=== PATIENT | male | born 1955 | race Caucasian/White ===

== ENCOUNTER 2020-02-15 16:15 | Emergency (ER) | payer OTHER ==
[~2020-02-15] VITALS: Ht 172.7 cm; Wt 131.5 kg
--- NOTE | 2020-02-15 16:22 | PHYS DOC ---
Past History Past Medical History: Diabetes (JEAN CARLOS CARSON MD) Smoking: Non-smoker (JEAN CARLOS CARSON MD) General Adult EDM: Chief Complaint: WEAKNESS/GENERALIZED HPI: HPI: Patient is a 64-year-old male presents with generalized weakness. Patient was diagnosed with COVID-19 Tuesday and began having symptoms Tuesday. Patient has persistently had a fever cough but denies significant as of breath. Patient had nausea with some vomiting diarrhea. Patient has nasal congestion. Patient feels generally weak. (JEAN CARLOS CARSON MD) Review of Systems: Review of Systems: Constitutional: Complains of fever Eyes: Denies change in visual acuity HENT: Complains of congestion Respiratory: Complains of cough but no shortness of breath Cardiovascular: Denies chest pain or edema GI: Denies abdominal pain, but has nausea vomiting diarrhea : Denies dysuria Musculoskeletal: Complains of diffuse myalgias Integument: Denies rash Neurologic: Denies headache, focal weakness or sensory changes Endocrine: Denies polyuria or polydipsia Lymphatic: Denies swollen glands Psychiatric: Denies depression or anxiety (JEAN CARLOS CARSON MD) Heart Score: Risk Factors: Risk Factors: DM, Current or recent (<one month) smoker, HTN, HLP, family history of CAD, obesity. Risk Scores: Score 0 - 3: 2.5% MACE over next 6 weeks - Discharge Home Score 4 - 6: 20.3% MACE over next 6 weeks - Admit for Clinical Observation Score 7 - 10: 72.7% MACE over next 6 weeks - Early Invasive Strategies (JEAN CARLOS CARSON MD) Allergies: Allergies: Allergies Coded Allergies Type Severity Reaction Last Updated Verified No Known Drug Allergies 02/15/20 No (JEAN CARLOS CARSON MD) Physical Exam: PE: Constitutional: Well developed, well nourished, no acute distress, non-toxic appearance. [] HENT: Normocephalic, atraumatic, bilateral external ears normal, oropharynx moist, no oral exudates, nose normal. [] Eyes: PERRLA, EOMI, conjunctiva normal, no discharge. [] Neck: Normal range of motion, no tenderness, supple, no stridor. [] Cardiovascular:Heart rate regular rhythm, no murmur [] Lungs & Thorax: Bilateral breath sounds clear to auscultation [] Abdomen: Bowel sounds normal, soft, no tenderness, no masses, no pulsatile masses. [] Skin: Warm, dry, no erythema, no rash. [] Back: No tenderness, no CVA tenderness. [] Extremities: No tenderness, no cyanosis, no clubbing, ROM intact, no edema. [] Neurologic: Alert and oriented X 3, normal motor function, normal sensory function, no focal deficits noted. [] Psychologic: Affect normal, judgement normal, mood normal. [] (JEAN CARLOS CARSON MD) Current Patient Data: Labs: Laboratory Tests Test 02/15/20 16:38 White Blood Count 7.6 x10^3/uL Red Blood Count 5.55 x10^6/uL Hemoglobin 14.3 g/dL Hematocrit 44.8 % Mean Corpuscular Volume 81 fL Mean Corpuscular Hemoglobin 26 pg Mean Corpuscular Hemoglobin Concent 32 g/dL Red Cell Distribution Width 14.8 % Platelet Count 224 x10^3/uL Neutrophils (%) (Auto) 75 % Lymphocytes (%) (Auto) 17 % Monocytes (%) (Auto) 7 % Eosinophils (%) (Auto) 0 % Basophils (%) (Auto) 1 % Neutrophils # (Auto) 5.7 x10^3uL Lymphocytes # (Auto) 1.3 x10^3/uL Monocytes # (Auto) 0.6 x10^3/uL Eosinophils # (Auto) 0.0 x10^3/uL Basophils # (Auto) 0.1 x10^3/uL Prothrombin Time 9.9 SEC Prothromb Time International Ratio 1.0 Activated Partial Thromboplast Time 25 SEC D-Dimer (Renate) 0.79 mg/L Sodium Level 133 mmol/L Potassium Level 3.8 mmol/L Chloride Level 99 mmol/L Carbon Dioxide Level 25 mmol/L Anion Gap 9 Blood Urea Nitrogen 16 mg/dL Creatinine 0.9 mg/dL Estimated GFR (Cockcroft-Gault) 85.2 BUN/Creatinine Ratio 18 Glucose Level 153 mg/dL Lactic Acid Level 1.3 mmol/L Calcium Level 8.9 mg/dL Total Bilirubin 0.4 mg/dL Aspartate Amino Transf (AST/SGOT) 33 U/L Alanine Aminotransferase (ALT/SGPT) 44 U/L Alkaline Phosphatase 38 U/L Creatine Kinase 167 U/L Troponin I Quantitative 0.048 ng/mL Total Protein 7.3 g/dL Albumin 3.0 g/dL Albumin/Globulin Ratio 0.7 Lipase 101 U/L Current Medications Medications (Trade) Dose Ordered Sig/Johan Route PRN Reason Start Time Stop Time Status Last Admin Dose Admin Sodium Chloride (Normal Saline Flush) 10 ml QSHIFT PRN IV AFTER MEDS AND BLOOD DRAWS 02/15/20 16:30 Sodium Chloride 1,000 ml @ 1,000 mls/hr 1X ONCE IV 02/15/20 16:30 02/15/20 17:29 DC 02/15/20 16:30 Ondansetron HCl (Zofran) 4 mg 1X ONCE IVP 02/15/20 16:30 02/15/20 16:31 DC Acetaminophen (Tylenol) 1,000 mg 1X ONCE PO 02/15/20 16:30 02/15/20 16:31 DC 02/15/20 16:30 Acetaminophen (Tylenol) 325 mg STK-MED ONCE PO 02/15/20 16:27 02/15/20 16:27 DC Acetaminophen (Tylenol) 500 mg STK-MED ONCE PO 02/15/20 16:29 02/15/20 16:29 DC Vital Signs: Vital Signs Date Time Temp Pulse Resp B/P (MAP) Pulse Ox O2 Delivery O2 Flow Rate FiO2 02/15/20 16:19 100.7 62 16 136/72 (93) 93 Room Air (JEAN CARLOS CARSON MD) Labs: Laboratory Tests Test 02/15/20 16:38 02/15/20 17:19 White Blood Count 7.6 x10^3/uL Red Blood Count 5.55 x10^6/uL Hemoglobin 14.3 g/dL Hematocrit 44.8 % Mean Corpuscular Volume 81 fL Mean Corpuscular Hemoglobin 26 pg Mean Corpuscular Hemoglobin Concent 32 g/dL Red Cell Distribution Width 14.8 % Platelet Count 224 x10^3/uL Neutrophils (%) (Auto) 75 % Lymphocytes (%) (Auto) 17 % Monocytes (%) (Auto) 7 % Eosinophils (%) (Auto) 0 % Basophils (%) (Auto) 1 % Neutrophils # (Auto) 5.7 x10^3uL Lymphocytes # (Auto) 1.3 x10^3/uL Monocytes # (Auto) 0.6 x10^3/uL Eosinophils # (Auto) 0.0 x10^3/uL Basophils # (Auto) 0.1 x10^3/uL Prothrombin Time 9.9 SEC Prothromb Time International Ratio 1.0 Activated Partial Thromboplast Time 25 SEC D-Dimer (Renate) 0.79 mg/L Sodium Level 133 mmol/L Potassium Level 3.8 mmol/L Chloride Level 99 mmol/L Carbon Dioxide Level 25 mmol/L Anion Gap 9 Blood Urea Nitrogen 16 mg/dL Creatinine 0.9 mg/dL Estimated GFR (Cockcroft-Gault) 85.2 BUN/Creatinine Ratio 18 Glucose Level 153 mg/dL Lactic Acid Level 1.3 mmol/L Calcium Level 8.9 mg/dL Total Bilirubin 0.4 mg/dL Aspartate Amino Transf (AST/SGOT) 33 U/L Alanine Aminotransferase (ALT/SGPT) 44 U/L Alkaline Phosphatase 38 U/L Creatine Kinase 167 U/L Troponin I Quantitative 0.048 ng/mL Total Protein 7.3 g/dL Albumin 3.0 g/dL Albumin/Globulin Ratio 0.7 Lipase 101 U/L Urine Collection Type Unknown Urine Color Yellow Urine Clarity Clear Urine pH 5.5 Urine Specific [place] 1.010 Urine Protein Trace Urine Glucose (UA) >=1000 mg/dL Urine Ketones (Stick) Neg mg/dL Urine Blood Trace Urine Nitrite Neg Urine Bilirubin Neg Urine Urobilinogen Dipstick 0.2 mg/dL Urine Leukocyte Esterase Neg Urine RBC 0 /HPF Urine WBC 0 /HPF Urine Squamous Epithelial Cells None /LPF Urine Bacteria 0 /HPF Current Medications Medications (Trade) Dose Ordered Sig/Johan Route PRN Reason Start Time Stop Time Status Last Admin Dose Admin Sodium Chloride (Normal Saline Flush) 10 ml QSHIFT PRN IV AFTER MEDS AND BLOOD DRAWS 02/15/20 16:30 Sodium Chloride 1,000 ml @ 1,000 mls/hr 1X ONCE IV 02/15/20 16:30 02/15/20 17:29 DC 02/15/20 16:30 Ondansetron HCl (Zofran) 4 mg 1X ONCE IVP 02/15/20 16:30 02/15/20 16:31 DC Acetaminophen (Tylenol) 1,000 mg 1X ONCE PO 02/15/20 16:30 02/15/20 16:31 DC 02/15/20 16:30 Acetaminophen (Tylenol) 325 mg STK-MED ONCE PO 02/15/20 16:27 02/15/20 16:27 DC Acetaminophen (Tylenol) 500 mg STK-MED ONCE PO 02/15/20 16:29 02/15/20 16:29 DC (VIOLETTE VIGIL DO) EKG: EKG: [] EKG interpreted by me normal sinus rhythm rate of 68 normal axis incomplete right bundle branch block inverted T waves V1 through V3 (JEAN CARLOS CARSON MD) Radiology/Procedures: Radiology/Procedures: [][address] [address] IMAGING REPORT Signed PATIENT: TASHI MCDOWELL ACCOUNT: [id number] : 1955 LOCATION: ER AGE: 64 SEX: M EXAM STATUS: PRE ER ORD. PHYSICIAN: JEAN CARLOS CARSON MD REASON: covid, soa PROCEDURE: PORTABLE CHEST 1V PORTABLE CHEST 1V Clinical indications: covid, shortness of air COMPARISON: None available. Findings: Decreased inspiration is seen which may be related to patient's larger body habitus. No acute lung infiltrate or pleural effusion or pulmonary edema or lung mass or pneumothorax is seen. Sternotomy is evident. The heart size, pulmonary vasculature, mediastinum and both azucena are otherwise unremarkable. Impression: No acute radiographic abnormality is seen. Electronically signed by: Grover Koo MD (02/15/2020 4:51 PM) [id number] DICTATED AND SIGNED BY: GROVER KOO MD DATE: 02/15/201650 CC: JEAN CARLOS CARSON MD; PCP,NO ~ (JEAN CARLOS CARSON MD) Radiology/Procedures: [address] [address] IMAGING REPORT Signed PATIENT: TASHI MCDOWELL ACCOUNT: [id number] : 1955 LOCATION: ER AGE: 64 SEX: M EXAM STATUS: PRE ER ORD. PHYSICIAN: JEAN CARLOS CARSON MD REASON: covid, soa PROCEDURE: PORTABLE CHEST 1V PORTABLE CHEST 1V Clinical indications: covid, shortness of air COMPARISON: None available. Findings: Decreased inspiration is seen which may be related to patient's larger body habitus. No acute lung infiltrate or pleural effusion or pulmonary edema or lung mass or pneumothorax is seen. Sternotomy is evident. The heart size, pulmonary vasculature, mediastinum and both azucena are otherwise unremarkable. Impression: No acute radiographic abnormality is seen. Electronically signed by: Grover Koo MD (02/15/2020 4:51 PM) [id number] DICTATED AND SIGNED BY: GROVER KOO MD DATE: 02/15/201650 CC: JEAN CARLOS CARSON MD; PCP,NO ~ Impressions: [address] [address] IMAGING REPORT Signed PATIENT: TASHI MCDOWELL ACCOUNT: [id number] : 1955 LOCATION: ER AGE: 64 SEX: M EXAM STATUS: REG ER ORD. PHYSICIAN: JEAN CARLOS CARSON MD REASON: OMNI 350,100ML IV.COVID, COUGH, ELEVATED D DIMER, SOA PROCEDURE: CT ANGIOGRAPHY CHEST PQRS Compliance Statement: One or more of the following individualized dose reduction techniques were utilized for this examination: 1. Automated exposure control 2. Adjustment of the mA and/or kV according to patient size 3. Use of iterative reconstruction technique CT CHEST WITH CONTRAST, PULMONARY ANGIOGRAM History: Reason: COVID, COUGH, ELEVATED D DIMER, SOA / Comparison: None. Technique: Helical CT of the chest was performed after the administration of 100 cc of Omnipaque 350 intravenous contrast according to PE protocol. Axial and coronal reconstructions were obtained. 3-D MIP images were constructed to better evaluate the pulmonary arteries. Findings: Pulmonary arteries are adequately opacified. There is no evidence of pulmonary embolism. Coronary artery disease and changes of CABG. There is moderate bilateral gynecomastia. Thyroid is symmetric. Subcentimeter mediastinal lymph nodes. There are mildly enlarged bilateral hilar lymph nodes that may be reactive. The great vessels are normal caliber. Cardiac size is normal, no pericardial effusion. There is no pleural effusion. The central airways are patent. There are scattered groundglass opacities throughout the lungs with a peripheral and basilar predominance. Linear opacities in the right lower lobe may be a component of atelectasis. There are mild consolidations in the posterior basilar left lower lobe. Incompletely imaged 4.5 cm left renal cyst does not require follow-up. There is a 1.3 cm probable left adrenal adenoma, no follow-up. Thoracic spine alignment is maintained. There are degenerative changes. IMPRESSION: 1. There is no CT evidence of pulmonary embolus. 2. There are moderate peripheral and basilar predominant groundglass opacities. Considerations include atypical viral pneumonia or nonspecific pneumonitis. 3. Mildly enlarged bilateral hilar lymph nodes may be reactive. Electronically signed by: Will Ramos MD (02/15/2020 7:37 PM) [facility] DICTATED AND SIGNED BY: WILL RAMOS MD DATE: 02/15/201936 CC: JEAN CARLOS CARSON MD; PCP,NO; VIOLETTE VIGIL DO ~ (VIOLETTE VIGIL DO) Course & Med Decision Making: Course & Med Decision Making Pertinent Labs and Imaging studies reviewed. (See chart for details) [] 64-year-old male with COVID presents with generalized weakness and cough. His oxygen level is between 91 and 93 % is elevated d-dimer he will need a CT angiogram to rule out pulmonary embolism. Care will be signed over to Dr. Vigil with CT angiogram pending and disposition pending. (JEAN CARLOS CARSON MD) Course & Med Decision Making [address] angios chest to be completed. Patient will require different IV access. Awaiting for that to be completed now 1950 stable, CT scan did not show evidence of pulmonary embolus. However there was groundglass appearance present consistent with a probable developing viral/COVID pneumonia. We have no available isolation beds at this facility [address] Dr. Michelle is the excepting physician for medical monitored bed at [facility]. Patient has a known positive COVID infection. (VIOLETTE VIGIL DO) Dragon Disclaimer: Dragon Disclaimer: This electronic medical record was generated, in whole or in part, using a voice recognition dictation system. (JEAN CARLOS CARSON MD) Departure Departure: Impression: Primary Impression: COVID-19 Additional Impressions: Pulmonary infiltrates Hyperglycemia Hypoxia Disposition: 05 TRANSFER OTHER ([facility] under Dr. Michelle) Admitting Physician: Nicolette Michelle (VIOLETTE VIGIL DO) Condition: STABLE Referrals: PCP,SYLWIA (PCP) Justification of Admission: Justification of Admission: Justification of Admission Dx: N/A (JEAN CARLOS CARSON MD) Justification of Admission Dx: Yes Comminuty Aquired Pneumonia: Hypoxemia (VIOLETTE VIGIL DO) COVID-19 Assessment COVID-19 Patient Risks: Age 65 or older: No Sign of co-morbidity: Yes Exp to person + for COVID: Yes Exp to PUI: Yes Travel from affected area: No Lower respiratory symptoms: Yes Fever: Yes Other: No Comments: known positive COVID 1 week ago, pt is in isolation room (VIOLETTE VIGIL DO) PPE Use: Full PPE with N95 mask or PAPR: Yes (VIOLETTE VIGIL DO) JEAN CARLOS CARSON MD Feb 15, 2020 16:22 VIOLETTE VIGIL DO Feb 15, 2020 18:04
[2020-02-15] MEDS ORDERED: ACETAMINOPHEN 325 MG TABLET PO ONE (16:27)
[2020-02-15] MEDS ORDERED: ACETAMINOPHEN 500 MG TABLET PO ONE ×2 (16:29→16:30)
[2020-02-15] MEDS ORDERED: IV NORMAL SALINE 1,000ML 1,000 ML IV ONE (16:30)
[2020-02-15] MEDS ORDERED: ONDANSETRON PF 4 MG/2 ML VIAL. IVP ONE (16:30)
[2020-02-15] MEDS ORDERED: 0.9 % SODIUM CHLORIDE 10 ML DISP.SYRIN. IV PRN (16:30)
--- NOTE | 2020-02-15 16:48 | EKG ---
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
--- NOTE | 2020-02-15 16:54 | RAD ---
PORTABLE CHEST 1V Clinical indications: covid, shortness of air COMPARISON: None available. Findings: Decreased inspiration is seen which may be related to patient's larger body habitus. No acute lung infiltrate or pleural effusion or pulmonary edema or lung mass or pneumothorax is seen. Sternotomy is evident. The heart size, pulmonary vasculature, mediastinum and both azucena are otherwise unremarkable. Impression: No acute radiographic abnormality is seen. Electronically signed by: Reinier Koo MD (02/15/2020 4:51 PM) [id number]
[2020-02-15 17:03] LABS: BASO # 0.1 x10^3/uL (0.0-0.2); BASO % 1 % (0-3); EOS % 0 % (0-3); HEMATOCRIT 44.8 % (39.0-53.0); HEMOGLOBIN 14.3 g/dL (13.0-17.5); LYMPH # 1.3 x10^3/uL (1.0-4.8); LYMPH % 17 % (24-48); MEAN CORPUSCULAR HEMOGLOBIN 26 pg (25-35); MEAN CORPUSCULAR HGB CONC 32 g/dL (31-37); MEAN CORPUSCULAR VOLUME 81 fL (79-100); MONO # 0.6 x10^3/uL (0.0-1.1); MONO % 7 % (0-9); NEUT # 5.7 x10^3uL (1.8-7.7); NEUT % 75 % (31-73); PLATELET COUNT 224 x10^3/uL (140-400); RED BLOOD COUNT 5.55 x10^6/uL (4.30-5.70); RED CELL DISTRIBUTION WIDTH 14.8 % (11.5-14.5); WHITE BLOOD COUNT 7.6 x10^3/uL (4.0-11.0)
[2020-02-15 17:11] LABS: CALCIUM 8.9 mg/dL (8.5-10.1); CREATININE 0.9 mg/dL (0.7-1.3); GFR 85.2; POTASSIUM 3.8 mmol/L (3.5-5.1)
[2020-02-15 17:17] LABS: ALBUMIN/GLOBULIN RATIO 0.7 (1.0-1.7); TOTAL BILIRUBIN 0.4 mg/dL (0.2-1.0); TOTAL PROTEIN 7.3 g/dL (6.4-8.2)
[2020-02-15 17:53] LABS: CLARITY,URINE CLEAR; COLOR,URINE YELLOW; GLUCOSE,URINE >=1000 mg/dL (NEG)
[2020-02-15 17:54] LABS: BACTERIA,URINE 0 /HPF (0-FEW); BILIRUBIN,URINE NEG (NEG); NITRITE,URINE NEG (NEG); RBC,URINE 0 /HPF (0-2); UROBILINOGEN,URINE 0.2 mg/dL (0.2 mg/dL); WBC,URINE 0 /HPF (0-4)
[2020-02-15] MEDS ORDERED: IOHEXOL 350 MG/ML 100 ML VIAL. IV ONE (18:15)
--- NOTE | 2020-02-15 19:40 | RAD ---
PQRS Compliance Statement: One or more of the following individualized dose reduction techniques were utilized for this examination: 1. Automated exposure control 2. Adjustment of the mA and/or kV according to patient size 3. Use of iterative reconstruction technique CT CHEST WITH CONTRAST, PULMONARY ANGIOGRAM History: Reason: COVID, COUGH, ELEVATED D DIMER, SOA / Comparison: None. Technique: Helical CT of the chest was performed after the administration of 100 cc of Omnipaque 350 intravenous contrast according to PE protocol. Axial and coronal reconstructions were obtained. 3-D MIP images were constructed to better evaluate the pulmonary arteries. Findings: Pulmonary arteries are adequately opacified. There is no evidence of pulmonary embolism. Coronary artery disease and changes of CABG. There is moderate bilateral gynecomastia. Thyroid is symmetric. Subcentimeter mediastinal lymph nodes. There are mildly enlarged bilateral hilar lymph nodes that may be reactive. The great vessels are normal caliber. Cardiac size is normal, no pericardial effusion. There is no pleural effusion. The central airways are patent. There are scattered groundglass opacities throughout the lungs with a peripheral and basilar predominance. Linear opacities in the right lower lobe may be a component of atelectasis. There are mild consolidations in the posterior basilar left lower lobe. Incompletely imaged 4.5 cm left renal cyst does not require follow-up. There is a 1.3 cm probable left adrenal adenoma, no follow-up. Thoracic spine alignment is maintained. There are degenerative changes. IMPRESSION: 1. There is no CT evidence of pulmonary embolus. 2. There are moderate peripheral and basilar predominant groundglass opacities. Considerations include atypical viral pneumonia or nonspecific pneumonitis. 3. Mildly enlarged bilateral hilar lymph nodes may be reactive. Electronically signed by: Mikie Ramos MD (02/15/2020 7:37 PM) [facility]
[2020-02-15 20:06] VITALS: BP 116/69
== END 2020-02-16 00:24 | disposition short-term general hospital (02) ==
LOC: ER 16:15
DX: U07.1 COVID-19 (principal); R91.8 Other nonspecific abnormal finding of lung field; E11.65 Type 2 diabetes mellitus with hyperglycemia; R09.02 Hypoxemia; R11.2 Nausea with vomiting, unspecified; R19.7 Diarrhea, unspecified
CPT/HCPCS: 36415; 71045; 71275; 80053; 81001; 82550; 83605; 83690; 84484; 85025; 85379; 85610; 85730; 87040; 93005; 96360; 96361; 99285; J7030; Q9967